=== PATIENT | male | born 1955 | race Caucasian/White ===

== ENCOUNTER → 2016-08-23 | Outpatient (CLI) | payer MEDICARE, OTHER ==
[~2016-08-23] MED LIST: AC325T PO; ASP81TEC PO; CARV6.252 PO; CLOP75TA PO; LOSA25TA15 PO; LOVA20TA2 PO; METO25TA2 PO; NAPR220C11 PO; RANI150C11 PO; RT-COMBINH IH; nitroglycerin SL
== END ==
LOC: CARD 07:52
PROVIDERS: ATTEND Nurse Practitioner Family
DX: I25.10 Atherosclerotic heart disease of native coronary artery without angina pectoris (principal); I10 Essential (primary) hypertension; I34.0 Nonrheumatic mitral (valve) insufficiency

== ENCOUNTER → 2016-11-12 | Outpatient (CLI) | payer MEDICARE | LOC: RAD 12:44 | PROVIDERS: ATTEND Internal Medicine Cardiovascular Disease | DX: I25.10 Atherosclerotic heart disease of native coronary artery without angina pectoris (principal); I73.9 Peripheral vascular disease, unspecified; I65.23 Occlusion and stenosis of bilateral carotid arteries; J43.8 Other emphysema; I10 Essential (primary) hypertension; E78.4 Other hyperlipidemia; Z72.0 Tobacco use | CPT/HCPCS: 93923 ==

== ENCOUNTER → 2017-05-20 | Outpatient (CLI) | payer MEDICARE, OTHER ==
[~2017-05-20] MED LIST changes: +CATHETER FLUSH 10 ML SYR IV PRN; +REGADENOSON 0.4 MG/5 ML SYR (LEXISCAN) IV ONE
[2017-05-20 09:17] VITALS: BP 142/81
--- NOTE | 2017-05-20 18:19 | STRESS TEST ---
DATE OF SERVICE: 05/20/2017 RESTING AND POST REGADENOSON TECHNETIUM 99M TETROFOSMIN SPECT CT IMAGING ORDERING PHYSICIAN: Radha Reeder APRN OTHER PHYSICIAN: Dr. Fraire. CLINICAL DIAGNOSES: Chest discomfort, coronary artery disease, hypertension, history of tobacco use. Baseline images were carried out after injection of 10.87 mCi of technetium-99m Tetrofosmin. This was followed by 0.4 mg regadenoson and 29.7 mCi of technetium-99m Tetrofosmin for stress imaging. The electrocardiogram showed sinus rhythm throughout the study and did not change significantly with regadenoson infusion. He tolerated the procedure well. Review of images at rest and following stress indicates an inferoseptal perfusion defect, which appears mostly transient. Gated images show normal global left ventricular systolic function with normal regional wall motion. Left ventricular ejection fraction is calculated to be 72%. Left ventricular end diastolic volume is 88 mL. TID is absent (1.11). CONCLUSIONS: 1. The study is indicative of a moderate amount of inferoseptal ischemia. 2. Normal regional wall motion. 3. Normal global left ventricular systolic function with a calculated ejection fraction of 72%. 4. Normal left ventricular end diastolic volume. Job ID: [id number] DocumentID: [id number] Dictated Date: 05/20/2017 15:06:58 Timber Repairer Date: 05/20/2017 18:17:56 Dictated By: CHALO FRAIRE MD, MA, FACP, FACC, MTDD
== END ==
LOC: CARD 07:44
PROVIDERS: ATTEND Nurse Practitioner Family
DX: I25.10 Atherosclerotic heart disease of native coronary artery without angina pectoris (principal); I65.29 Occlusion and stenosis of unspecified carotid artery; I10 Essential (primary) hypertension; E78.5 Hyperlipidemia, unspecified; Z72.0 Tobacco use; R07.9 Chest pain, unspecified
CPT/HCPCS: 78452; 93017

== ENCOUNTER 2017-06-17 06:45 | Day surgery (SDC) | payer OTHER ==
[~2017-06-17] VITALS: Ht 182.9 cm; Wt 88.0 kg
[2017-06-17] VITALS (12 sets, daily range): BP systolic 110–139; BP diastolic 63–85
[~2017-06-17 06:45] MED LIST changes: -CATHETER FLUSH 10 ML SYR IV PRN; -REGADENOSON 0.4 MG/5 ML SYR (LEXISCAN) IV ONE
[2017-06-17] MEDS ORDERED: HEParin (CATH LAB) 2,000 ML IV ONE (06:48)
[2017-06-17] MEDS ORDERED: NS IV 1000 ML 1,000 ML ONE (06:48)
[2017-06-17] MEDS ORDERED: NS IV 1000 ML 1,000 ML IV SCH (07:15)
[2017-06-17 07:36] LABS: HEMOGLOBIN 15.9 G/DL (13.3-17.7); MEAN PLATELET VOLUME 9.7 FL (7.4-10.4); RED BLOOD COUNT 5.66 10^6/uL (4.35-5.85); RED CELL DISTRIBUTION WIDTH 14.6 % (10.0-14.5); WHITE BLOOD COUNT 10.5 10^3/uL (4.3-11.0)
[2017-06-17 07:48] LABS: INR 1.1 (0.8-1.4); PROTHROMBIN TIME PATIENT 13.9 SEC (12.2-14.7)
[2017-06-17 07:57] LABS: ALANINE AMINOTRANSFERASE 8 U/L (0-55); ALBUMIN 4.3 GM/DL (3.2-4.5); ALKALINE PHOSPHATASE 29 U/L (40-136); BILIRUBIN,TOTAL 0.3 MG/DL (0.1-1.0); BUN/CREATININE RATIO 15; CARBON DIOXIDE 25 MMOL/L (21-32); CHLORIDE 110 MMOL/L (98-107); CHOLESTEROL 122 MG/DL (< 200); CREATININE SERUM 0.79 MG/DL (0.60-1.30); GFR ESTIMATED > 60; GLUCOSE 105 MG/DL (70-105); HDL CHOLESTEROL 33 MG/DL (40-60); POTASSIUM 3.8 MMOL/L (3.6-5.0); SODIUM 140 MMOL/L (135-145); TRIGLYCERIDES 84 MG/DL (<150); VLDL CHOLESTEROL 17 MG/DL (5-40)
[2017-06-17] MEDS ORDERED: MIDAZOLAM 5 MG/5 ML (VERSED) VIAL ONE (08:46)
[2017-06-17] MEDS ORDERED: LIDOCAINE 1% INJ 50 ML (XYLOCAINE) VIAL ONE (08:46)
[2017-06-17] MEDS ORDERED: fentaNYL INJECTION 100 MCG/2 ML AMP ONE (08:46)
[2017-06-17] MEDS ORDERED: diphenhydrAMINE 50 MG/ML INJ (BENADRYL) ONE (08:46)
--- NOTE | 2017-06-17 09:56 | Cardiac Procedure Note-CS/ASA ---
Pre-Procedure Note Pre-Op Procedure Note H&P Reviewed The H&P was reviewed, patient examined and no changes noted. Date H&P Reviewed: Jun 17, 2017 Time H&P Reviewed: 09:10 Conscious Sedation Pre-Proced Time Reviewed: 09:10 ASA Class: 3 Airway Mallampati Classification: ([place] appropriate class) I. II. III, IV Lungs Heart ASA score ASA 1: a normal healthy patient ASA 2: a patient with a mild systemic disease (mid diabetes, controlled hypertension, obesity ASA 3: a patient with a severe systemic disease that limits activity (angina , COPD, prior Myocardial infarction) ASA 4: a patient with an incapacitating disease that is a constant threat to life (CHF, renal failure) ASA 5: a moribund patient not expected to survive 24 hrs. (ruptured aneurysm) ASA 6: a declared brain patient whose organs are being harvested. For emergent operations, add the letter E after the classification Grade 2 Sedation Plan: Analgesia, Amnesia, Plan communicated to team members, Discussed options with patient/fam, Discussed risks with patient/fam Note The patient is an appropriate candidate to undergo the planned procedure, sedation, and anesthesia. The patient immediately re-assessed prior to indication. CHALO FRAIRE MD FACP FAC CCDS Jun 17, 2017 09:56
--- NOTE | 2017-06-17 09:58 | Discharge Inst-Cardiology ---
Discharge Inst-Cardiac Discharge Medications Continued Medications: Aspirin (Aspirin Ec 81 Mg) 81 Mg Tabec 81 MG PO HS Carvedilol (Carvedilol) 6.25 Mg Tablet 6.25 MG PO BID Lovastatin (Lovastatin) 20 Mg Tablet 20 MG PO HS Ranitidine Hcl (Ranitidine Hcl) 150 Mg Capsule 150 MG PO BID, #60 CAP 1 Refill Patient Instructions Patient Instructions: No smoking CHALO FRAIRE MD FACP FACC CCDS Jun 17, 2017 09:58
--- NOTE | 2017-06-17 09:59 | Discharge Inst-Post CATH ---
Discharge Inst-CATH Post Cardiac Cath D/C Inst Follow Up/Plan F/u with Dr Arcos in 2 weeks No smoking CARDIAC CATH DISCHARGE INSTRUCTIONS *Hold Metformin for 48 hours post heart cath. ACTIVITY * Go Home directly and rest. * Limit activity of the leg (or wrist if it was used) for 7 days including aerobics, swimming, jogging, bicycling, etc. * Restrict stair-climbing for 7 days if possible, if not, climb up with your non -cath leg, then bring together on the same step. * Avoid lifting, pushing, pulling or excessive movement of the affected extremity for 7 days. * Customary sexual activity may be resumed after 2 days-use caution not to use a position that strains or causes pain to the affected extremity. * No driving for 24 hours. * NO SMOKING. * Avoid straining for bowel movements for 7 days. * Gentle walking on level ground is allowed. * Returning to work will depend on the type of procedure and the results. Your doctor will discuss this with you. CALL YOUR DOCTOR FOR ANY OF THE FOLLOWING: *If bleeding from the puncture site occurs- Apply gentle pressure to site with clean cloth and call your doctor or EMS. * If a knot or lump forms under the skin, increases in size, or causes pain. * If bruising appears to be worsening or moving further down your leg instead of disappearing. * Temperature above 101 F. CARE OF YOUR GROIN INCISION; * Bruising or purple discoloration of the skin near the puncture site is common. * You may shower only, no bathtub bathing for 5 days. Be careful to avoid slipping as your leg may feel stiff. * If a closure device was used on your femoral artery, please see the attached guide regarding care of the device and your leg. * REMOVE the dressing from your groin the next day after your procedure in the shower. CARE OF YOUR WRIST INCISION; * Bruising or purple discoloration of the skin near the puncture site is common. * You may shower. * DO NOT submerge wrist. * Remove dressing in 24 hours. CHALO ARCOS MD [facility] CCDS Jun 17, 2017 09:59
--- NOTE | 2017-06-17 10:08 | CARDIAC CATHETERIZATION ---
DATE OF SERVICE: 06/17/2017 CARDIAC CATHETERIZATON REPORT The patient is a 61-year-old gentleman with known coronary artery disease. He recently had a myocardial perfusion imaging study, which indicated considerable inferoseptal ischemia. Cardiac catheterization was recommended and was carried out today after having obtained an informed consent. DESCRIPTION OF PROCEDURE: He was brought to the cardiac catheterization laboratory in a fasting state. Right groin was prepared and draped in the usual sterile fashion. Lidocaine 1% with local anesthesia. Modified Seldinger technique to advance a 5-Burundian sheath in the right femoral artery. A 5-Burundian JL4 catheter for left coronary angiography and 5-[place] JR4 catheter for right coronary angiography. A 5-Burundian pigtail catheter was used for left heart catheterization and left ventricular angiography. At the end of the procedure, angiography of the right femoral artery was carried out through the sheath and Mynx was used to achieve hemostasis. He tolerated the procedure well. HEMODYNAMICS: Left ventricular end-diastolic pressure following coronary angiography was 9 mmHg. There is no significant pressure gradient on pullback across the aortic valve. Ascending aortic pressure was 113/72 with a mean of 93 mmHg. LEFT VENTRICULAR ANGIOGRAPHY: Left ventricular angiography was carried out in the right anterior oblique projection. Global left ventricular systolic function normal. No regional wall motion abnormalities were seen. There does not appear to be significant mitral regurgitation. CORONARY ANGIOGRAPHY: Diffuse coronary calcification was seen. There was diffuse mild to moderate plaque of all coronary arteries. Right coronary artery was dominant. Stents in the right coronary artery were widely patent. CONCLUSIONS: 1. Diffuse mild to moderate coronary artery disease. 2. Patent stents in the right coronary artery known to be, from proximal to distal, [place] 3.5 x 15 mm, 3.0 x 9 mm, 3.0 x 12 mm, and 3.0 x 9 mm placed several years ago. 3. Normal global left ventricular systolic function with an ejection fraction of 60%. 4. Normal left ventricular end-diastolic pressure. 5. No significant mitral regurgitation. DISCUSSION AND RECOMMENDATIONS: Based on the results of the study, it appears appropriate to continue a conservative approach. Risk factor modification has been reviewed. He has again been advised to quit smoking. Current cardiac regimen is being continued. Outpatient followup is advised. Job ID: [id number] DocumentID: [id number] Dictated Date: 06/17/2017 09:46:27 Manager Of Production Date: 06/17/2017 10:07:32 Dictated By: CHALO FRAIRE MD, MA, FACP, FACC, MTDD
[2017-06-17] MEDS ORDERED: ceFAZolin 1,000 MG (ANCEF) VIAL ONE (14:07)
[2017-06-17] MEDS ORDERED: proPOfol 200 MG/20 ML (DIPRIVAN) VIAL IV ONE (14:07)
[2017-06-17] MEDS ORDERED: ONDANSETRON 4 MG/2 ML (SDV) Z0FRAN ONE ×2 (14:07)
[2017-06-17] MEDS ORDERED: FUROSEMIDE 40 MG/4 ML INJ (LASIX) ONE (14:07)
== END 2017-06-17 13:20 | disposition home or self-care (01) ==
LOC: CATH 06:45 → SURG 09:55 → CATH 13:20
PROVIDERS: ATTEND Nurse Practitioner Family
DX: I25.10 Atherosclerotic heart disease of native coronary artery without angina pectoris (principal); R06.02 Shortness of breath; E78.5 Hyperlipidemia, unspecified; I10 Essential (primary) hypertension; J44.9 Chronic obstructive pulmonary disease, unspecified; F17.210 Nicotine dependence, cigarettes, uncomplicated; Z79.82 Long term (current) use of aspirin; Z79.899 Other long term (current) drug therapy; Z95.5 Presence of coronary angioplasty implant and graft
CPT/HCPCS: 36415; 80053; 80061; 85027; 85610; 85730; 87081; 93458

== ENCOUNTER 2020-09-10 07:18 | Emergency (ER) | payer MEDICARE ==
[~2020-09-10] VITALS: Ht 180 cm; Wt 83.9 kg
[2020-09-10] MEDS ORDERED: ACHD5005 PO (07:58)
--- NOTE | 2020-09-10 07:58 | ED Back Pain ---
General Chief Complaint: Back Problems Stated Complaint: L SHOULDER KNOT/PAIN Nursing Triage Note: PT PRESENTS TO ED VIA POV FROM HOME WITH COMPLAINTS OF L UPPER BACK/SHOULDER PAIN X 2 WEEKS. REPORTS NOTICED A KNOT ON HIS SHOULDER START TO DEVELOPE ON 09/05 Source of Information: Patient Exam Limitations: No Limitations History of Present Illness Date Seen by Provider: Sep 10, 2020 Time Seen by Provider: 07:30 Initial Comments This 64-year-old gentleman presents to the emergency room with complaints of a painful knot worsening over the last couple of weeks along the medial edge of the left superior scapula. It seems to be progressing in size fairly quickly. He is not aware of any injury. Allergies and Home Medications Allergies Coded Allergies: codeine (Verified Allergy, Unknown, 09/10/20) Home Medications Aspirin 81 Mg Tabec, 81 MG PO HS, (Reported) Last Action: Last Taken Edited Carvedilol 6.25 Mg Tablet, 6.25 MG PO BID, (Reported) Last Action: Last Taken Edited Hydrocodone/Acetaminophen 1 Each Tablet, 1 TAB PO Q6H PRN for PAIN-BREAKTHROUGH Prescribed by: ROSARIO HOGAN on 09/10/20 0800 Lovastatin 20 Mg Tablet, 20 MG PO HS, (Reported) Last Action: Last Taken Edited Ranitidine Hcl 150 Mg Capsule, 150 MG PO BID Prescribed by: TONIA BE on 08/31/13 1554 Last Action: Last Taken Edited Patient Home Medication List Home Medication List Reviewed: Yes Review of Systems Constitutional: no symptoms reported EENTM: no symptoms reported Respiratory: no symptoms reported Cardiovascular: no symptoms reported Gastrointestinal: no symptoms reported Genitourinary: no symptoms reported Musculoskeletal: see HPI Skin: see HPI Psychiatric/Neurological: No Symptoms Reported Past Glbnhst-Voljnu-Jifdxc Hx Patient Social History Tobacco Use?: Yes Tobacco type used: Cigarettes Smoking Status: Current Someday Smoker Substance use?: Yes Substance type: Marijuana Alcohol Use?: No Past Medical History Surgery/Hospitalization HX: reports history of hypertension, and high cholesterol Surgeries: No Respiratory: Yes COPD Cardiac: Yes High Cholesterol, Hypertension Neurological: No Reproductive Disorders: No Gastrointestinal: Yes Gastroesophageal Reflux Musculoskeletal: No Endocrine: No HEENT: No Cancer: No Psychosocial: No Family Medical History Family history: Cardiovascular disease 03 FATHER, Onset:30's - 40 Family history: Diabetes mellitus 03 FATHER, Onset:75 History of - disorder 03 FATHER (LUPUS) Physical Exam Vital Signs Vital Signs - First Documented 09/10/20 07:38 Temp 35.8 Pulse 90 Resp 18 B/P (MAP) 150/85 (106) Pulse Ox 96 Capillary Refill : Less Than 3 Seconds Height, Weight, BMI Height: 6'0.00" Weight: 194lbs. 0.0oz. 87.161640te; 25.00 BMI Method:Stated General Appearance: No Apparent Distress, WD/WN, Thin Neck: Normal Inspection Cardiovascular: Regular Rate, Rhythm Respiratory: Normal Breath Sounds, No Accessory Muscle Use, Wheezing Extremity: Normal Inspection, Normal Range of Motion Neurologic/Psychiatric: Alert, Oriented x3, No Motor/Sensory Deficits, Normal Mood/Affect Skin: Normal Color, Warm/Dry, Other (Solid lump measuring about 2 x 3 cm along the medial edge of the left upper scapula. This lump feels to be in the subcutaneous tissue and possibly consistent with lipoma.) Progress/Results/Core Measures Results/Orders My Orders Orders - ROSARIO YOON MD Hydrocodone/Apap 5/325 Tablet (Lortab 5 (09/10/20 08:00) Vital Signs/I&O 09/10/20 09/10/20 07:38 08:20 Temp 35.8 35.8 Pulse 90 84 Resp 18 18 B/P (MAP) 150/85 (106) 155/106 (106) Pulse Ox 96 96 Blood Pressure Mean: 106 Progress Progress Note : Progress Note Bedside ultrasound was used to evaluate the lump which appeared to be tissue rather than a fluid collection. This may be consistent with a lipoma. Patient was advised to seek referral to a surgeon for further evaluation. He seems to have exacerbation of pain with movement of nearby muscles. Hydrocodone was given for pain. Departure Impression Primary Impression: Mass on back Additional Impression: Back pain Qualified Codes: M54.6 - Pain in thoracic spine Disposition: 01 HOME, SELF-CARE Condition: Improved Departure-Patient Inst. Decision time for Depature: 07:53 Referrals: ROSEANNA WAGONER BRETT D DO HUERTER, DAVID F MD (PCP/Family) Primary Care Physician GABINO SHERMAN MD Patient Instructions: Lipoma Add. Discharge Instructions: The mass on your back appears to be solid rather than a cyst. This may represent a tumor such as a lipoma. Referral to a surgeon is recommended for further evaluation and possible excision (removal). A list of surgeons is provided below. You may need referral from your insurance and it may be beneficial to contact your insurance prior to making arrangements with the surgeon. For treatment of pain, start with ibuprofen up to 600 mg every 6 hours as needed. Add hydrocodone as prescribed for pain not controlled by ibuprofen. Avoid activities that worsen the pain. Call with questions or concerns. Return to ER if you have worsening symptoms. All discharge instructions reviewed with patient and/or family. Voiced understanding. Scripts Hydrocodone/Acetaminophen (Hydrocodone-Acetamin 5-325 mg) 1 Each Tablet 1 TAB PO Q6H PRN for PAIN-BREAKTHROUGH, #10 TAB Prov: ROSARIO YOON MD 09/10/20 Copy Copies To 1: DANIELLA SARAH MD, JOSHUA T MD Sep 10, 2020 07:58
[2020-09-10] MEDS ORDERED: HYDROcodone/APAP 5 MG/325 MG (LORTAB) TAB PO ONE (08:00)
[2020-09-10 08:20] VITALS: BP 155/106
== END 2020-09-10 08:20 | disposition home or self-care (01) ==
LOC: EDUNIT# 07:18 → ER 07:20
DX: R22.32 Localized swelling, mass and lump, left upper limb (principal); M54.6 Pain in thoracic spine; J44.9 Chronic obstructive pulmonary disease, unspecified; I10 Essential (primary) hypertension; K21.9 Gastro-esophageal reflux disease without esophagitis; F17.210 Nicotine dependence, cigarettes, uncomplicated; E78.00 Pure hypercholesterolemia, unspecified; Z79.899 Other long term (current) drug therapy; Z79.82 Long term (current) use of aspirin
CPT/HCPCS: 99283

== ENCOUNTER 2021-09-18 13:44 | Emergency (ER) | payer MEDICARE ==
[~2021-09-18] VITALS: Ht 180 cm; Wt 78.0 kg
[~2021-09-18 13:44] MED LIST changes: +ACHD5005 PO
--- NOTE | 2021-09-18 14:22 | ED Integumentary General ---
General Chief Complaint: Skin/Wound Problems Stated Complaint: R LEG SPIDER BITE Nursing Triage Note: PT AMB TO ED BY POV FROM [facility] WITH C/O ABCESS TO R KNEE. PT BELIEVES HE WAS BIT BY A SPIDER LAST WEEK AND HAS HAD REDNESS, EDEMA, PAIN AND CLEAR DRAINAGE AT R LATERAL KNEE FOR 4 DAYS. PT DENIES FEVER, N/V/D. Source: patient Exam Limitations: no limitations History of Present Illness Date Seen by Provider: Sep 18, 2021 Time Seen by Provider: 14:20 Initial Comments Patient is a 65-year-old male who presents to the ED with with an abscess to the right lateral knee and left axillary. Noticed a red lump 5 days ago. Increase in size with some mild purulent drainage. Similar lump to his left axilla. States he had tick bite to the right axilla went to the clinic and was given topical antibiotic ointment. Went to clinic today was recommended come to ED for further evaluation. Denies fever, chills, nausea, vomiting, diarrhea. Unsure if he was bitten by a spider. States he was cleaning out a shed at the time. Allergies and Home Medications Allergies Coded Allergies: codeine (Verified Allergy, Unknown, 09/10/20) Patient Home Medication List Home Medication List Reviewed: Yes Aspirin (Aspirin Ec 81 Mg) 81 Mg Tabec, 81 MG PO HS, (Reported) Entered as Reported by: BLAKE ALVAREZ on 04/24/11 1508 Carvedilol (Carvedilol) 6.25 Mg Tablet, 6.25 MG PO BID, (Reported) Entered as Reported by: NITZA ELLISON on 03/08/13 1848 Cephalexin (Cephalexin) 500 Mg Tablet, 500 MG PO QID Prescribed by: DAVE VALLECILLO on 09/18/21 1515 Doxycycline Monohydrate (Doxycycline Monohydrate) 100 Mg Tablet, 100 MG PO BID Prescribed by: DAVE VALLECILLO on 09/18/21 1515 Hydrocodone/Acetaminophen (Hydrocodone-Acetamin 5-325 mg) 1 Each Tablet, 1 TAB PO Q6H PRN for PAIN-BREAKTHROUGH Prescribed by: ROSARIO HOGAN on 09/10/20 0800 Lovastatin (Lovastatin) 20 Mg Tablet, 20 MG PO HS, (Reported) Entered as Reported by: NITZA ELLISON on 03/08/13 1739 Ranitidine Hcl (Ranitidine Hcl) 150 Mg Capsule, 150 MG PO BID Prescribed by: TONIA BE on 08/31/13 1554 Review of Systems Review of Systems Constitutional: No chills, No diaphoresis, No malaise, No weakness EENTM: No hearing loss, No ear pain, No blurred vision, No double vision Respiratory: No cough, No dyspnea on exertion, No short of breath Cardiovascular: No chest pain Gastrointestinal: No abdominal pain, No diarrhea, No nausea, No vomiting Genitourinary: No decreased output, No discharge Musculoskeletal: No back pain, No joint pain Skin: change in color All Other Systems Reviewed Negative Unless Noted: Yes Past Ackgglr-Xwmgsv-Doocir Hx Patient Social History Tobacco Use?: Yes Tobacco type used: Cigarettes Smoking Status: Current Everyday Smoker Use of E-Cig and/or Vaping dev: No Substance use?: No Alcohol Use?: No Pt feels they are or have been: No Immunizations Up To Date Influenza Vaccine Up-to-Date: Yes; Up-to-Date Past Medical History Surgery/Hospitalization HX: HTN, HIGH CHOLESTEROL, CARDIAC STENTS X4 Surgeries: No Respiratory: Yes COPD Cardiac: Yes High Cholesterol, Hypertension Neurological: No Reproductive Disorders: No Gastrointestinal: Yes Gastroesophageal Reflux Musculoskeletal: No Endocrine: No HEENT: No Cancer: No Psychosocial: No Family Medical History Family history: Cardiovascular disease 03 FATHER, Onset:30's - 40 Family history: Diabetes mellitus 03 FATHER, Onset:75 History of - disorder 03 FATHER (LUPUS) Physical Exam Vital Signs Vital Signs - First Documented 09/18/21 13:49 Temp 36.7 Pulse 91 Resp 18 B/P (MAP) 112/68 (83) Pulse Ox 96 O2 Delivery Room Air Capillary Refill : Less Than 3 Seconds General Appearance: WD/WN, no apparent distress HEENT: PERRL/EOMI, normal ENT inspection, TMs normal, pharynx normal Neck: non-tender, full range of motion, supple, normal inspection Cardiovascular: regular rate, rhythm, no edema, no gallop, no JVD Respiratory: chest non-tender, lungs clear, normal breath sounds, no respiratory distress, no accessory muscle use Gastrointestinal: normal bowel sounds, non tender, soft, no organomegaly Back: normal inspection, no CVA tenderness, no vertebral tenderness Extremities: other (2 x 2 fluctuant mass left axilla, 3 x 3 cm fluctuant mass right lateral knee with surrounding redness and swelling. Normal active range of motion right knee.) Skin: other (Abscess to left axilla and abscess to right lateral knee) Skin Problem Character: abscess (Right lateral knee 3 x 3 cm.) Procedures/Interventions I&D : Site: 3x3 cm right lateral knee Blade Size: 11 I & D Procedure: betadine prep Packing/Drain: Idoform / Progress Moderate mount of purulent drainage. Progress/Results/Core Measures Results/Orders My Orders Vital Signs/I&O 09/18/21 13:49 Temp 36.7 Pulse 91 Resp 18 B/P (MAP) 112/68 (83) Pulse Ox 96 O2 Delivery Room Air Blood Pressure Mean: 83 Departure Communication (PCP) Abscess to the right lateral knee. Does not appear to have septic joint. Normal active range of motion of the right knee without severe pain or discomfort on movement. No circumferential swelling or redness of the right knee. Incision and drainage with iodoform packing. Remove in 2 days may return back to ED for wound check which I recommend. Patient had a small abscess to his left axilla and drained with a small incision with 11 inch blade. Small amount of purulent drainage. Patient did have large amount of drainage to the right lateral knee abscess. Patient will be discharged with doxycycline and Keflex. He does not appear toxic or septic. Possible spider bite versus bug bite that resulted in a developing abscess. If any worsening redness or swelling to return back to ED for further evaluation. Patient tolerated procedure well. Discussed wound care Impression Primary Impression: Abscess Disposition: 01 HOME, SELF-CARE Condition: Stable Departure-Patient Inst. Decision time for Depature: 15:13 Referrals: DANIELLA SARAH MD (PCP/Family) Primary Care Physician Patient Instructions: Abscess Incision and Drainage Add. Discharge Instructions: Return in 2 days for wound check. Take antibiotics as prescribed. If any worsening redness or swelling to return back to ED All discharge instructions reviewed with patient and/or family. Voiced understanding. Scripts Doxycycline Monohydrate (Doxycycline Monohydrate) 100 Mg Tablet 100 MG PO BID for 7 Days, #14 TAB Prov: SOILA BAPTISTE 09/18/21 Cephalexin (Cephalexin) 500 Mg Tablet 500 MG PO QID for 7 Days, #28 TAB Prov: SOILA BAPTISTE 09/18/21 SOILA BAPTISTE Sep 18, 2021 14:22
[2021-09-18] MEDS ORDERED: DOXY100T31 PO (15:15)
[2021-09-18] MEDS ORDERED: CEPH500T PO (15:15)
[2021-09-18 15:28] VITALS: BP 97/76
== END 2021-09-18 15:27 | disposition home or self-care (01) ==
LOC: EDUNIT# 13:44 → ER 13:45
DX: L02.415 Cutaneous abscess of right lower limb (principal); F17.210 Nicotine dependence, cigarettes, uncomplicated; Z28.310 Unvaccinated for COVID-19
CPT/HCPCS: 10061